=== PATIENT | male | born 1965 | race African-American/Black ===

== ENCOUNTER 2020-05-27 08:46 | Outpatient (CLI) | payer OTHER, SELFPAY ==
--- NOTE | 2020-05-27 08:51 | ECG_ITS ---
Measurements Intervals [place] Rate: 74 P: 43 IA: 150 QRS: 72 QRSD: 89 T: 35 QT: 381 QTc: 424 Interpretive Statements SINUS RHYTHM NONSPECIFIC T-WAVE ABNORMALITY- INFERIOR LEADS BORDERLINE ECG Electronically Signed On 05-27-2020 15:48:06 STRATEGIC ACCOUNT DIRECTOR by Thien Mcwilliams D.O.
== END 2020-05-27 08:47 | disposition home or self-care (01) ==
PROVIDERS: PCP Family Medicine; Visit Provider Family Medicine
DX: R07.9 Chest pain, unspecified (principal)
CPT/HCPCS: 93005

== ENCOUNTER 2020-11-24 15:56 | Outpatient (CLI) | payer OTHER, SELFPAY ==
--- NOTE | ~2020-11-24 | XR_ITS ---
XR hip BI wo pelvis DATE: 11/24/2020 16:39 INDICATION: Right hip pain TECHNIQUE: AP, lateral, crosstable lateral views of each hip COMPARISON: None FINDINGS: The pubic symphysis and sacroiliac joints are intact. No hip fracture or dislocation, avasc ular necrosis or bone destruction is noted on either side. Hip joint spaces are symmetric and relativ ruby preserved. IMPRESSION: No significant abnormality Reviewed, dictated and finalized at location A. IMPRESSION: No significant abnormality
--- NOTE | ~2020-11-24 | XR_ITS ---
XR lumbar spine min 4V DATE: 11/24/2020 16:39 INDICATION: Right hip pain for 2 weeks. No known injury. TECHNIQUE: AP, lateral, coned lateral lumbosacral and bilateral oblique views COMPARISON: 05/21/2004 lumbar spine FINDINGS: There is mild degenerative spurring at L1-2, L2-3 and L3-4. Disc spaces are relatively pres erved. No fracture or bone destruction, spondylolysis or spondylolisthesis. The pedicles are intact. The sac roiliac joints are normal. IMPRESSION: Mild degenerative spurring Reviewed, dictated and finalized at location A. IMPRESSION: Mild degenerative spurring
== END 2020-11-24 15:57 | disposition home or self-care (01) ==
LOC: ANHIMG 16:03
PROVIDERS: PCP Family Medicine; Visit Provider Family Medicine
DX: M25.551 Pain in right hip (principal); M47.816 Spondylosis without myelopathy or radiculopathy, lumbar region
CPT/HCPCS: 72110; 73521

== ENCOUNTER 2023-03-04 15:45 | Observation (INO) | payer OTHER, SELFPAY ==
[2023-03-04] VITALS (12 sets, daily range): BP systolic 99–122; BP diastolic 55–66; PULSE 95–124; RESP 14–20; TEMP 37.6–38.6; O2SAT 93–100; BMI 35.7; BMI 36.8
--- NOTE | ~2023-03-04 | CT_ITS ---
EXAMINATION: CT abdomen pelvis w con DATE: 03/04/2023 16:52 INDICATION: Right lower quadrant pain and nausea TECHNIQUE: Computed tomography (CT) of the abdomen and pelvis was performed with 100 cc Omnipaque 350 intravenous contrast. The dose-length product was 1301.38 mGy-cm. Automated exposure control and ite rative reconstruction technique were employed. COMPARISON: None. FINDINGS: Large hiatal hernia. No significant pleural or pericardial effusion. Mild atherosclerosis w ithout aneurysm. Bilateral fat-containing inguinal hernias. There is a fat-containing umbilical herni a. The liver, spleen, pancreas, right adrenal gland are unremarkable. There is an intermediate density 2 .5 cm left adrenal mass. Gallbladder is contracted. Nonobstructive bowel gas pattern. There is an enh ancing appendix which is not enlarged. There is fluid surrounding the tail of the appendix extending into the paracolic gutter and pelvis. Bladder wall is diffusely thickened with mild perivesical fatty infiltration. No discrete walled off fluid collection to suggest abscess. The liver, spleen, pancrea s, right adrenal gland and kidneys are unremarkable. There are mild external iliac chain lymph nodes with surrounding fluid, likely reactive. IMPRESSION: 1. Enhancing normal caliber appendix with surrounding fluid which extends inferiorly into the paracol ic gutter and pelvis. No discrete walled off fluid collection to suggest abscess. Cannot exclude acut e appendicitis. 2: Mild lymphadenopathy of the right external iliac chain, likely reactive. 3: Large hiatal hernia. 4: Diffuse bladder wall thickening with perivesical fatty infiltration, suspicious for cystitis. Reviewed, dictated and finalized at location A. IMPRESSION: 1. Enhancing normal caliber appendix with surrounding fluid which extends infer iorly into the paracolic gutter and pelvis. No discrete walled off fluid collec tion to suggest abscess. Cannot exclude acute appendicitis. 2: Mild lymphadenopathy of the right external iliac chain, likely reactive. 3: Large hiatal hernia. 4: Diffuse bladder wall thickening with perivesical fatty infiltration, suspici ous for cystitis.
--- NOTE | 2023-03-04 16:09 | ED.ABDPAIN ---
HPI - Abdominal Pain General Chief Complaint: Abdominal Pain <KASSANDRA Gaviria Last Filed: 03/04/23 16:16> Stated Complaint: abd pain <KASSANDRA Gaviria Last Filed: 03/04/23 16:16> Time Seen by Provider: 03/04/23 17:16 <KASSANDRA Gaviria Last Filed: 03/04/23 16:16> Source: patient <KASSANDRA Gaviria Last Filed: 03/04/23 16:16> Mode of arrival: ambulatory <KASSANDRA Gaviria Last Filed: 03/04/23 16:16> Limitations: no limitations <KASSANDRA Gaviria Last Filed: 03/04/23 16:16> History of Present Illness HPI narrative: Patient is a 57 y/o male who presents to the ED with c/o RLQ abdominal pain. Patient reports he began feeling ill a few days ago with subjective fevers, chills, body aches. He developed lower abdominal pain today which seems to be localized to his RLQ. Sent here from PCP office. Tested negative for covid at home, negative for influenza at PCP office. Reports nausea and mild dysuria, denies vomiting, diarrhea, cough/cold sx's, hematuria, back/flank pain. <KASSANDRA Gaviria Last Filed: 03/04/23 16:16> Related Data Home Medications: Home Medications Medication Instructions Recorded Confirmed esomeprazole magnesium 40 mg 40 mg PO DAILY 04/13/19 03/04/23 capsule,delayed release (Nexium) fluticasone propionate 50 2 spray intranasal DAILY 04/13/19 03/04/23 mcg/actuation nasal spray,suspension (Flonase Allergy Relief) multivitamin (Daily Multi-Vitamin 1 tablet PO DAILY 05/20/22 03/04/23 tablet) azithromycin 250 mg tablet 250 mg PO DAILY 03/04/23 03/04/23 loratadine 10 mg tablet (Claritin) 10 mg PO DAILY 03/04/23 03/04/23 <KASSANDRA Gaviria Last Filed: 03/04/23 16:16> Allergies/Adverse Reactions: Allergies Allergy/AdvReac Type Severity Reaction Status Date / Time cefuroxime Allergy Unknown Nausea Verified 03/04/23 23:06 clarithromycin Allergy Unknown itching Verified 03/04/23 23:06 loratadine Allergy Unknown fast heart Verified 03/04/23 23:06 rate/palpitations Penicillins Allergy Unknown Unknown Verified 03/04/23 23:06 pseudoephedrine Allergy Unknown fast heart Verified 03/04/23 23:06 [Claritin-D 12 Hour] rate/palpitations <Elizabeth Daniels PA-C - Last Filed: 03/04/23 16:16> Review of Systems Review of Systems: CONSTITUTIONAL: See HPI. CARDIOVASCULAR: Denies chest pain, palpitations, or edema. RESPIRATORY: Denies cough or dyspnea. GASTROINTESTINAL: See HPI. GENITOURINARY: See HPI. MUSCULOSKELETAL: Denies myalgia. NEUROLOGIC: Denies headache, numbness, or weakness. <Elizabeth Daniels PA-C - Last Filed: 03/04/23 16:16> [facility] Past Medical History Medical History: Medical History (Updated 03/04/23 @ 19:35 by Lasha Florentino PA-C) Normal colonoscopy (~11/16/13) <Elizabeth Daniels PA-C - Last Filed: 03/04/23 16:16> Surgical History Surgical History: Surgical History History of adenoidectomy History of arthroscopy of knee (~07/22/13) History of tonsillectomy <Elizabeth Daniels PA-C - Last Filed: 03/04/23 16:16> Family History Family History: Family History Father Diabetes mellitus Mother Diabetes mellitus Sibling Diabetes mellitus Carcinoma of colon <Elizabeth Daniels PA-C - Last Filed: 03/04/23 16:16> Social History Social History: Social History Smoking status: Never smoker Alcohol intake: former Substance use: never Lack of Transportation: No Lack of Food: Never True Current Housing: I Have Housing Concerned About Future Housing: No Difficulty Paying Gas/Electric Bills: No Difficulty Paying for Meds: No Currently Unemployed: No Education: Master's Degree or Higher Difficulty w/ Child
[2023-03-04 16:20] LABS: Basophils Absolute Auto 0.1 K/mm3 (0.0-0.1); Basophils Percent Auto 0.2 % (0.2-1.2); Hematocrit 44.5 % (42.0-52.0); Hemoglobin 14.8 g/dL (14.0-18.0); Immature Granulocyte Absolute 0.14 K/mm3 (0.00-0.031); Immature Granulocyte Percent A 0.7 % (0-0.5); Lymphocytes Absolute Auto 0.67 K/mm3 (0.9-3.2); Lymphocytes Percent Auto 3.2 % (18.3-44.2); Mean Corpuscular HGB Conc 33.3 g/dl (32-36); Mean Corpuscular Hemoglobin 30.2 pg (26-34); Mean Corpuscular Volume 90.8 fl (80-100); Mean Platelet Volume 10.5 fl (7.4-10.4); Monocytes Absolute Auto 1.9 K/mm3 (0.1-0.6); Neutrophils Absolute Auto 17.9 K/mm3 (1.3-6.7); Neutrophils Percent Auto 86.9 % (45.5-73.1); Platelet Count Result 144 k/mm3 (150-375); Red Cell Distribution Width 13.2 % (11.5-14.5); White Blood Count 20.7 K/mm3 (4.5-10.0)
[2023-03-04 16:37] LABS: Alanine Aminotransferase 20 U/L (6-50); Alkaline Phosphatase 34 U/L (38-126); Anion Gap 10 mmol/L (8-16); Aspartate Amino Transferase 25 U/L (17-59); Bilirubin,Total 0.9 mg/dL (0.2-1.3); Blood Urea Nitrogen 19 mg/dL (9-20); Calcium 9.1 mg/dL (8.4-10.2); Carbon Dioxide 26 mmol/L (22-30); Chloride 97 mmol/L (98-107); Estimated CRCL calculation 51 ml/min; Estimated Glomerular Filt Rate 47; Glucose 187 mg/dL (65-110); Lipase 55 U/L (23-300); Potassium 3.6 mmol/L (3.4-5.0); Sodium 133 mmol/L (137-145)
[2023-03-04] MEDS: ACETAMINOPHEN 500 MG TABLET 1000 MG PO (17:32)
[2023-03-04] MEDS: SODIUM CHLORIDE 0.9% IV 1,000 ML 999 ML IV CONT ×2 (17:33→19:44)
[2023-03-04] MEDS: ONDANSETRON INJ 4 MG/2 ML VIAL IV PUSH ×2 (18:10→23:44)
[2023-03-04] MEDS: MORPHINE SULFATE (*CRX) 4 MG/ML INJ IV PUSH (18:10)
[2023-03-04 18:43] LABS: Appearance Urine Clear (Clear); Bacteria Urine None Seen /hpf; Bilirubin Urine Negative (Negative); Blood Urine Trace (Negative); Color Urine Yellow (Yellow); Glucose Urine UA Negative (Negative); Ketones Urine Negative (Negative); Leukocyte Esterase Ur Negative LEU/UL (Negative); Need Manual Microscopic Reviewed; Nitrate Urine Negative (Negative); Non Pathogenic Casts 0-2; Protein Urine 1+ mg/dL (Negative); RBC Urine 0-2 /hpf (0-2); Squamous Epithelial Cell Urine None seen /hpf (Few); Urobilinogen Urine 0.2 mg/dL (<2.0); WBC Urine 0-5 /hpf; pH Urine 5.5 (5.0-9.0)
[2023-03-04 18:47] LABS: Add Urine Microscopic? YES; Specific Grav Ur 1.084 (1.001-1.035)
--- NOTE | 2023-03-04 19:31 | PC.NURSE ---
Assumed care of pt. Report from JOSE MIGUEL Ureña. Pt resting quietly per cart. Awaiting dispo.
[2023-03-04] MEDS: metroNIDAZOLE 500 MG/ISO 100ML 500 MG/100 ML BAG 100 MG IVPB (20:54)
[2023-03-04] MEDS: levoFLOXacin 750 MG/D5W 150 ML 750 MG/150 ML BAG 100 MG IVPB (22:04)
--- NOTE | 2023-03-04 22:46 | ADMGEN ---
This patient, Jesus Hanson, was admitted to [facility] Surg Room 327-01. Patient/family oriented to hospital policies and general routines including ID bracelet, bed and alarms, visiting hours, pain management, procedures, bathroom and other care routines, personal items, smoking policy, room service/diet, and visiting hours. Information on how to activate the Rapid Response Team has been discussed. Patient/Family are encouraged to report perceived risks to care and to ask questions if they do not understand what they are told or what they should do.
[2023-03-04] MEDS: SODIUM CHLORIDE 0.9% IV 1,000 ML 125 ML IV CONT (23:44)
[2023-03-05] VITALS (15 sets, daily range): BP systolic 109–148; BP diastolic 60–84; PULSE 80–116; RESP 14–20; TEMP 36.2–38.6; O2SAT 94–99
[2023-03-05] MEDS: ACETAMINOPHEN 500 MG TABLET 1000 MG PO (00:48)
[2023-03-05] MEDS: BUPIVACAINE/EPINEPHRINE 0.5% 50 ML VIAL 30 ML INFILTRATE (01:12)
[2023-03-05] MEDS: metroNIDAZOLE 500 MG/ISO 100ML 500 MG/100 ML BAG 100 MG IVPB ×4 (02:05→20:19)
--- NOTE | 2023-03-05 06:00 | ECG_ITS ---
Measurements Intervals [place] Rate: 105 P: 43 AK: 146 QRS: 63 QRSD: 96 T: 11 QT: 318 QTc: 420 Interpretive Statements SINUS TACHYCARDIA MINIMAL Q WAVES- INFERIOR LEADS NONSPECIFIC T-WAVE ABNORMALITY- INFERIOR LEADS BORDERLINE ECG COMPARED TO ECG 03/04/2023 19:47:06 NO SIGNIFICANT CHANGES Electronically Signed On 03-05-2023 9:27:37 CDT by Thien Mcwilliams D.O.
[2023-03-05] MEDS: SODIUM CHLORIDE 0.9% IV 1,000 ML 125 ML IV CONT (09:08)
--- NOTE | 2023-03-05 11:56 | PM.IMHP ---
H&P: HPI History of Present Illness Date/Time: 03/05/23 11:56 Chief Complaint: Abdominal pain Narrative: This is a 57-year-old man with a history of type 2 diabetes mellitus, hypertension, asthma, and hyperlipidemia, who was directed to the ER by his primary care physician yesterday for evaluation of abdominal pain. He reportedly developed chills and nausea 3 days ago. He has also been dealing with a headache for almost a week and thought he was having sinus issues. He decided to see his PCP 2 days ago for his headache. At that time, he was not having any abdominal pain. He continued to have nausea, but no vomiting. He was able to tolerate a diet and bowels were moving normally. He was treated for his headache and went home. Later that night, and into the next morning around 2:00 a.m., he developed periumbilical abdominal pain. He continued to have nausea. His pain progressively worsened and began to localize to the right lower quadrant. He reports feeling pain all over at times, but was mostly tender in the right lower quadrant. Yesterday morning, he reportedly had a fever of 101.8? F. He went back to his PCP and was directed to the ER for evaluation. In the ER, he had a fever as high as 101.5? F and was tachycardic with a heart rate in the 120s. Labs were significant for white blood cell count of 20,700, creatinine 1.8, and normal BUN. Urinalysis negative for urinary tract infection. CT scan of the abdomen and pelvis showed enhancing normal caliber appendix with surrounding fluid which extends inferiorly into the pericolic gutter and pelvis, no discrete walled off fluid for collection to suggest abscess, cannot exclude acute appendicitis. Mild lymphadenopathy of the right external iliac chain likely reactive, large hiatal hernia, and diffuse bladder wall thickening with perivesical fat infiltration suspicious for cystitis. The patient was admitted to our service for surgical evaluation. He has a penicillin allergy and was started on IV Levaquin and metronidazole. He is now seen on the medical floor. Review of Systems Review of Systems: All systems reviewed & are unremarkable except as noted in HPI and below PMFSH Past Medical History Medical History Hypertension Mild intermittent asthma Normal colonoscopy (~11/16/13) Pure hypercholesterolemia, unspecified Type 2 diabetes mellitus with chronic kidney disease Surgical History Surgical History History of adenoidectomy History of arthroscopy of knee (~07/22/13) History of tonsillectomy Family History Family History Father Diabetes mellitus Mother Diabetes mellitus Sibling Diabetes mellitus Carcinoma of colon Social History Social History Smoking status: Never smoker Alcohol intake: former Substance use: never Lack of Transportation: No Lack of Food: Never True Current Housing: I Have Housing Concerned About Future Housing: No Difficulty Paying Gas/Electric Bills: No Difficulty Paying for Meds: No Currently Unemployed: No Education: Master's Degree or Higher Difficulty w/ Childcare or Family Care: No Spiritual care concerns: No Meds Home Medications and Allergies Home Medications Medication Instructions Recorded Confirmed Type esomeprazole magnesium 40 mg 40 mg PO DAILY 04/13/19 03/04/23 History capsule,delayed release (Nexium) fluticasone propionate 50 2 spray intranasal DAILY 04/13/19 03/04/23 History mcg/actuation nasal spray,suspension (Flonase Allergy Relief) metformin 500 mg tablet,extended 500 mg PO DAILY #90 tabs 05/20/22 03/04/23 Rx release 24 hr multivitamin (Daily Multi-Vitamin 1 tablet PO DAILY 05/20/22 03/04/23 History tablet) lisinopril 2.5 mg tablet See Rx Instructions
[2023-03-05 12:32] LABS: Glucose Point of Care 126 mg/dl (65-105)
--- NOTE | 2023-03-05 13:37 | WPDANESEPPF ---
Anes - Initial Pre Proc Eval Procedure: Operation Date: 03/05/23 14:00 Proposed Procedures p Laparoscopic Appendectomy - August Sanders DO Date/Time: 03/05/23 13:37 Surgeon: August Sanders DO Pre Op Diagnosis: Acute Appendicitis Patient Data Age: 57 Gender: M Height: 1.78 m Weight: 116.6 kg Last Vital Signs Temp 36.9 C 03/05/23 05:46 Pulse 95 03/05/23 05:46 Resp 14 03/05/23 05:46 BP 109/60 03/05/23 05:46 Pulse Ox 99 03/05/23 05:46 O2 Del Method Room Air 03/04/23 23:00 Allergies Allergy/AdvReac Type Severity Reaction Status Date / Time cefuroxime Allergy Unknown Nausea Verified 03/04/23 23:06 clarithromycin Allergy Unknown itching Verified 03/04/23 23:06 loratadine Allergy Unknown fast heart Verified 03/04/23 23:06 rate/palpitations Penicillins Allergy Unknown Unknown Verified 03/04/23 23:06 pseudoephedrine Allergy Unknown fast heart Verified 03/04/23 23:06 [Claritin-D 12 Hour] rate/palpitations Home Medications Medication Instructions Recorded Confirmed Type esomeprazole magnesium 40 mg 40 mg PO DAILY 04/13/19 03/04/23 History capsule,delayed release (Nexium) fluticasone propionate 50 2 spray intranasal DAILY 04/13/19 03/04/23 History mcg/actuation nasal spray,suspension (Flonase Allergy Relief) metformin 500 mg tablet,extended 500 mg PO DAILY #90 tabs 05/20/22 03/04/23 Rx release 24 hr multivitamin (Daily Multi-Vitamin 1 tablet PO DAILY 05/20/22 03/04/23 History tablet) lisinopril 2.5 mg tablet See Rx Instructions .Route 09/20/22 03/04/23 Rx .COMPLEX #90 tabs pravastatin 10 mg tablet 10 mg PO QHS #30 tabs 11/28/22 03/04/23 Rx hydrochlorothiazide 12.5 mg tablet See Rx Instructions .Route 12/11/22 03/04/23 Rx .COMPLEX #30 tabs albuterol sulfate 90 mcg/actuation 2 puff inhalation Q4-6H PRN 02/24/23 03/04/23 Rx aerosol inhaler (ProAir HFA) shortness of breath or wheezing #8.5 grams azithromycin 250 mg tablet 250 mg PO DAILY 03/04/23 03/04/23 History loratadine 10 mg tablet (Claritin) 10 mg PO DAILY 03/04/23 03/04/23 History Laboratory Tests 03/04/23 03/04/23 03/05/23 16:14 18:14 12:29 WBC 20.7 H K/mm3 (4.5-10.0) RBC 4.90 M/mm3 (4.6-6.20) Hgb 14.8 g/dL (14.0-18.0) Hct 44.5 % (42.0-52.0) MCV 90.8 fl (80-100) MCH 30.2 pg (26-34) MCHC 33.3 g/dl (32-36) RDW 13.2 % (11.5-14.5) Plt Count 144 L k/mm3 (150-375) MPV 10.5 H fl (7.4-10.4) Immature Gran % (Auto) 0.7 H % (0-0.5) Neut % (Auto) 86.9 H % (45.5-73.1) Lymph % (Auto) 3.2 L % (18.3-44.2) [place] % (Auto) 9.0 H % (2.6-8.5) Eos % (Auto) 0.0 % (0-4.4) Baso % (Auto) 0.2 % (0.2-1.2) Lymph # (Auto) 0.67 L K/mm3 (0.9-3.2) [place] # (Auto) 1.9 H K/mm3 (0.1-0.6) Eos # (Auto) 0.0 K/mm3 (0-0.3) Baso # (Auto) 0.1 K/mm3 (0.0-0.1) Abs Immat Gran (auto) 0.14 H K/mm3 (0.00-0.031) Absolute Neuts (auto) 17.9 H K/mm3 (1.3-6.7) Absolute Nucleated RBC 0.0 K/mm3 (0.0-0.012) Nucleated RBC % 0.0 % (0.0-0.2) Sodium 133 L mmol/L (137-145) Potassium 3.6 mmol/L (3.4-5.0) Chloride 97 L mmol/L (98-107) Carbon Dioxide 26 mmol/L (22-30) Anion Gap 10 mmol/L (8-16) BUN 19 mg/dL (9-20) Creatinine 1.80 H mg/dL (0.7-1.3) Estim Creat Clear Calc 51 ml/min Estimated GFR 47 L (59 - ) Glucose 187 H mg/dL (65-110) POC Capillary Glucose 126 H mg/dl (65-105) Calcium 9.1 mg/dL (8.4-10.2) Total Bilirubin 0.9 mg/dL (0.2-1.3) AST 25 U/L (17-59) ALT 20 U/L (6-50) Alkaline Phosphatase 34 L U/L (38-126) Total Protein 7.0 g/dL (6.3-8.2) Albumin
[2023-03-05 13:47] LABS: Glucose Point of Care 133 mg/dl (65-105)
[2023-03-05] MEDS: LACTATED RINGERS 1,000 ML 30 ML IV CONT (13:49)
--- NOTE | 2023-03-05 13:50 | WPDHPUPDATE1 ---
History and Physical Update Update Date/Time: 03/05/23 13:50 History and Physical has been reviewed, including an updated exam of the patient. There are NO changes in the patient's condition. Risks, benefits, and alternatives have been discussed and questions answered. Patient agrees to proceed with procedure.
--- NOTE | 2023-03-05 15:03 | W.PM.PROC2 ---
Procedure Note - Detailed Date of Procedure 03/05/23 Pre-op Diagnosis Acute Appendicitis Post-op Diagnosis Same Procedure Performed Laparoscopic appendectomy Surgeon August Sanders, DO Anesthesia General and Local (0.5% bupivicaine with epinephrine) Indications This is a 57-year-old man who presented with intermittent abdominal pain for about the past week that became acutely worse over the past day or so. He experienced fevers yesterday and was having worsening abdominal pain. He presented to the emergency department and was noted to have an elevated white blood count and CT showed inflammatory stranding around the appendix concerning for appendicitis. He was admitted to the hospital placed on broad-spectrum IV antibiotics. The patient continued to have right lower quadrant pain. Discussions were made with the patient about treatment options and decision was made to proceed with laparoscopic appendectomy, possible open. Findings Laparoscopic appendectomy was performed. Upon entering the abdomen laparoscopically, there did appear to be a few chronic abdominal adhesions including omentum up to the lower abdominal wall and right lower quadrant. There were also some omental adhesions around the appendix itself. The appendix had some chronic inflammatory changes, but did not appear to be too acutely inflamed. The base of the appendix appeared healthy and viable. The appendix was removed and sent to the lab for pathology. I then carefully inspected the remainder of the colon and small bowel. No other acute abnormalities were noted. Description of Procedure Procedure as well as risks, benefits, and alternatives were explained to the patient. The patient agreed to proceed. Written consent was obtained and placed in chart prior to procedure. The patient was brought back to surgical suite. He was placed supine on operating table. Time-out was done to confirm the patient and procedure. The patient was then intubated by the Anesthesia Department. His abdomen was prepped and draped in sterile fashion using chlorhexidine prep. A 5 mm incision was made just to the left of the patient's umbilicus and a 5 mm Optiview trocar was advanced through the abdominal layers under direct visualization. Once inside the peritoneal cavity, carbon dioxide insufflation was used to create a pneumoperitoneum. The camera was inserted and the abdomen was inspected. No immediate abnormalities were identified. The patient was then placed in slight Trendelenburg position and rotated to the left. A 5 mm incision was made in the suprapubic region in midline and a 5 mm trocar was inserted under direct visualization. A 12 mm incision was made in the left lower quadrant and a 12 mm trocar was inserted under direct visualization. The right lower quadrant was carefully inspected. The cecum was identified and then this was traced back to the appendix. The appendix was identified and grasped at the mesoappendix and lifted anteriorly. Careful blunt dissection was carried out at the base of the appendix through the mesoappendix using a [place] grasper. An Endo-TRACY 45 mm blue load stapler was then advanced across the base of the appendix and clamped and fired. A white reload was then clamped across the mesoappendix and fired. This freed up our appendix completely. It was then placed in an EndoCatch bag and removed through the left lower quadrant port. The staple lines were then inspected. Hemostasis appeared adequate and the staple lines appeared secure. The area was then irrigated with sterile saline. The pelvis was then carefully inspected and irrigated with sterile saline as well and the remainder of the abdomen was carefully inspected. The patient was then flattened out in bed. One final inspection was made around the abdominal cavity and no other abnormalities were seen. The left lower quadrant port was removed and a Usama-Andrés cone was used to approximate the fascia with a
[2023-03-05 15:28] LABS: Glucose Point of Care 131 mg/dl (65-105)
--- NOTE | 2023-03-05 18:39 | PC.NURSE ---
patient returned to room at 1650 from surgery
[2023-03-05] MEDS: HYDROcodone/acetaminophen (*CRX) 7.5-325 MG TABLET 1 TAB PO (20:19)
[2023-03-05] MEDS: levoFLOXacin 750 MG/D5W 150 ML 750 MG/150 ML BAG 100 MG IVPB (22:33)
[2023-03-06] MEDS: metroNIDAZOLE 500 MG/ISO 100ML 500 MG/100 ML BAG 100 MG IVPB ×2 (03:04→08:00)
[2023-03-06] MEDS: HYDROcodone/acetaminophen (*CRX) 7.5-325 MG TABLET 1 TAB PO (03:39)
[2023-03-06 04:17] VITALS: BP 112/73; PULSE 87; RESP 16; TEMP 36.2; O2SAT 96
[2023-03-06 06:57] LABS: Hematocrit 42.1 % (42.0-52.0); Hemoglobin 13.6 g/dL (14.0-18.0); Mean Corpuscular HGB Conc 32.3 g/dl (32-36); Mean Corpuscular Hemoglobin 29.9 pg (26-34); Mean Corpuscular Volume 92.5 fl (80-100); Platelet Count Result 142 k/mm3 (150-375); Red Blood Count 4.55 M/mm3 (4.6-6.20); Red Cell Distribution Width 13.2 % (11.5-14.5); White Blood Count 18.7 K/mm3 (4.5-10.0)
[2023-03-06 07:01] LABS: Anion Gap 7 mmol/L (8-16); Blood Urea Nitrogen 14 mg/dL (9-20); Calcium 8.5 mg/dL (8.4-10.2); Carbon Dioxide 27 mmol/L (22-30); Chloride 103 mmol/L (98-107); Estimated CRCL calculation 65 ml/min; Estimated Glomerular Filt Rate > 60; Glucose 105 mg/dL (65-110); Potassium 3.4 mmol/L (3.4-5.0); Sodium 137 mmol/L (137-145)
[2023-03-06 08:00] VITALS: O2SAT 96
[2023-03-06] MEDS: ENOXAPARIN 40 MG/0.4 ML SYRINGE SUB-Q (08:00)
[2023-03-06 10:01] VITALS: BP 127/80; PULSE 90; RESP 18; TEMP 36.6; O2SAT 97
--- NOTE | 2023-03-06 10:23 | PM.DS ---
DS: Admitting Diagnosis Discharge Date 03/06/2023 Admitting Diagnosis Acute appendicitis, acute kidney injury DS: Discharge Diagnosis Discharge Diagnosis (1) Acute appendicitis: Qualifiers: Acute appendicitis type: with localized peritonitis Appendicitis gangrene presence: without gangrene Appendicitis perforation presence: without perforation Appendicitis abscess presence: without abscess Qualified Code(s): K35.30 - Acute appendicitis with localized peritonitis, without perforation or gangrene Code(s): K35.80 - Unspecified acute appendicitis Status: Acute (2) Acute kidney injury superimposed on chronic kidney disease: Code(s): N17.9 - Acute kidney failure, unspecified; N18.9 - Chronic kidney disease, unspecified Status: Acute (3) Type 2 diabetes mellitus with chronic kidney disease: Code(s): E11.22 - Type 2 diabetes mellitus with diabetic chronic kidney disease Status: Chronic DS: Summary Hospital Course Reason for hospitalization: Acute appendicitis Hospital Course: This is a 57-year-old man who presented to the emergency department 03/04/2023 with right lower quadrant pain. He had been having some intermittent pains over the past week or so, but over the past 2 days his pain had become constant and more severe. He was also experiencing nausea and vomiting. Workup in the emergency department showed an elevated white blood count. He was also febrile. CT showed fat stranding and fluid along the right lower quadrant and right pericolic gutter near the appendix. The appendix was not dilated but it was enhancing. His symptoms appeared consistent with acute cholecystitis therefore he was admitted to the hospital and started on broad-spectrum IV antibiotics. Then underwent laparoscopic appendectomy on 03/05/2023. There was some chronic scarring around the appendix and the appendix appeared mildly indurated but there was no evidence of perforation or abscess. The appendix was removed and sent to the lab for pathology. Postoperatively he did well. He was able to advance his diet. He was passing flatus. He remained afebrile after surgery and he was hemodynamically stable. His white blood count came down slightly on postop day 1 but was still elevated at 18,000. Blood cultures have been obtained in the emergency department and so far were negative. Discussions were made with the patient about continued observation versus discharge home. Patient felt comfortable going home. He was discharged on 03/06/2023 a 5 day course of Levaquin and Flagyl. Status at Discharge Functional status at discharge: independent ambulation Overall status at discharge: patient is progressing back to baseline Time Spent with Patient Time attestation: Total time spent providing and/or coordinating discharge services: Time spent: Less than 30 minutes Exam Const: General: comfortable, no acute distress and alert Orientation/consciousness: patient oriented x3 Resp: Effort & Inspection: normal respiratory effort Auscultation: clear to auscultation bilaterally Cardio: Rate: regular rate Rhythm: regular rhythm Heart sounds: S1 normal heart sound present and S2 normal heart sound present GI: Inspection: non-distended and incision (Intact with glue) GI Palp: Yes Soft to palpation and Yes Tenderness to palpation present (GI) (Incisional) Auscultation: normal bowel sounds DS: Data Data Completed and Pending Pending studies at discharge: Pending at discharge 03/05/23 14:44 Surgical [PTH] Routine Labs on day of discharge: Labs from last 24 hours 03/06/23 03/05/23 03/05/23 06:23 15:25 13:45 WBC 18.7 H RBC 4.55 L Hgb 13.6 L Hct 42.1 MCV 92.5 MCH 29.9 MCHC 32.3 RDW 13.2 Plt Count 142 L MPV 11.0 H Sodium 137 Potassium 3.4 Chloride 103 Carbon Dioxide 27 Anion Gap 7 L BUN 14 D Creatinine 1.40 H Estim Creat Clear Calc 65 Estimate
== END 2023-03-06 12:55 | disposition home or self-care (01) ==
LOC: ANHED 19:35 → ANH3MEDSUR 22:09
PROVIDERS: Emergency Medicine; Admitting Provider Surgery; Emergency Provider Physician Assistant; PCP Family Medicine; Visit Provider Surgery
PROC: 0DTJ4ZZ Resection of Appendix, Percutaneous Endoscopic Approach (ICD-10-PCS; CPT 44970; principal; 2023-03-05 14:00)
DX: K36 Other appendicitis (principal); R00.1 Bradycardia, unspecified; D72.829 Elevated white blood cell count, unspecified; R50.9 Fever, unspecified; R56.9 Unspecified convulsions; R59.1 Generalized enlarged lymph nodes; R11.0 Nausea; J45.909 Unspecified asthma, uncomplicated; E78.00 Pure hypercholesterolemia, unspecified; E11.9 Type 2 diabetes mellitus without complications; I10 Essential (primary) hypertension; E78.5 Hyperlipidemia, unspecified; K44.9 Diaphragmatic hernia without obstruction or gangrene; R94.4 Abnormal results of kidney function studies; E66.9 Obesity, unspecified; Z79.51 Long term (current) use of inhaled steroids; Z68.36 Body mass index [BMI] 36.0-36.9, adult; Z79.84 Long term (current) use of oral hypoglycemic drugs; Z79.899 Other long term (current) drug therapy
CPT/HCPCS: 44970; 36415; 74177; 80048; 80053; 81001; 82948; 83690; 85025; 85027; 87040; 88304; 93005; 96361; 96365; 96375; 96376; 99285; A9270; G0378; J0330; J1650; J1836; J1956; J2250; J2270; J2405; J2704; J3010; J7030; J7120; Q9967

== ENCOUNTER → 2023-03-14 11:20 | Outpatient (CLI) | payer OTHER, SELFPAY ==
--- NOTE | ~2023-03-14 | MR_ITS ---
MRI of the brain Clinical History: Headache Technique: Axial and sagittal T1-weighted images were acquired. These were followed by axial T2-weigh darnell, diffusion weighted, gradient, and FLAIR images. Findings: There is no abnormal signal in the brain parenchyma. No acute infarct, intracranial hemorrh age, or mass lesion identified. Ventricles and subarachnoid spaces are unremarkable. Orbits are unremarkable. Paranasal sinuses and m astoid air cells are clear. Major intracranial flow voids are intact. Sagittal midline structures are intact. IMPRESSION: Unremarkable exam. Reviewed, dictated and finalized at location M. BLOCKER IMPRESSION: Unremarkable exam.
== END ==
PROVIDERS: PCP Family Medicine; Visit Provider Nurse Practitioner Family
DX: R51.9 Headache, unspecified (principal)
CPT/HCPCS: 70551

== ENCOUNTER 2023-04-06 03:46 | Emergency (ER) | payer OTHER, SELFPAY ==
[2023-04-06] VITALS (15 sets, daily range): BP systolic 148–165; BP diastolic 84–111; PULSE 99–109; RESP 18–26; TEMP 36.4; O2SAT 90–97
--- NOTE | ~2023-04-06 | XR_ITS ---
EXAMINATION: XR chest 2V DATE: 04/06/2023 05:58 INDICATION: Cough and sinus congestion TECHNIQUE: PA and lateral views of the chest were obtained. COMPARISON: Chest radiograph dated 05/07/[address] dated 06/06/2004 FINDINGS: Mild opacities at the bilateral lung bases and favor atelectasis over pneumonia. Large hiatal hernia posterior to the normal sized heart. No pulmonary edema, pleural effusion or pneumothorax. Bones are unremarkable. IMPRESSION: 1. Mild bibasilar opacities and favor atelectasis over pneumonia. 2. Large hiatal hernia. Reviewed, dictated and finalized at location A. T BAND SEPARATOR
[2023-04-06 04:57] LABS: Influenza A QL RT-PCR Negative (Negative); Influenza B QL RT-PCR Negative (Negative); RSV RNA, RT-PCR Negative (Negative); SARS-CoV-2 RNA PCR Negative (Negative)
[2023-04-06 05:43] LABS: Strep Group A RT-PCR NOT DETECTED (Negative)
--- NOTE | 2023-04-06 05:43 | ED.GENADULT ---
HPI - General Adult General Chief complaint: Upper Respiratory Infection Stated complaint: sore throat Time Seen by Provider: 04/06/23 04:59 History of Present Illness HPI narrative: patient is a 57-year-old gentleman who presents to emergency department with chief complaint of upper respiratory infection patient reports that since Friday he has had a sore throat has had a dry cough and has had a runny nose. The patient reports that he takes metformin for diabetes reports that he has had no sick contacts does report that he has had some clear nasal discharge. Related Data Home Medications Medication Instructions Recorded Confirmed esomeprazole magnesium 40 mg 40 mg PO DAILY 04/13/19 03/24/23 capsule,delayed release (Nexium) fluticasone propionate 50 2 spray intranasal DAILY 04/13/19 03/24/23 mcg/actuation nasal spray,suspension (Flonase Allergy Relief) multivitamin (Daily Multi-Vitamin 1 tablet PO DAILY 05/20/22 03/24/23 tablet) loratadine 10 mg tablet (Claritin) 10 mg PO DAILY 03/04/23 03/24/23 Allergies Allergy/AdvReac Type Severity Reaction Status Date / Time cefuroxime Allergy Unknown Nausea Verified 04/06/23 05:07 clarithromycin Allergy Unknown itching Verified 04/06/23 05:07 loratadine Allergy Unknown fast heart Verified 04/06/23 05:07 rate/palpitations Penicillins Allergy Unknown Unknown Verified 04/06/23 05:07 pseudoephedrine Allergy Unknown fast heart Verified 04/06/23 05:07 [Claritin-D 12 Hour] rate/palpitations Review of Systems Review of Systems: A 10 system review of systems was completed on the patient and is negative except for what is stated in the HPI. Nursing and ancillary documentation was reviewed. [facility] Past Medical History Medical History Hypertension Mild intermittent asthma Normal colonoscopy (~11/16/13) Pure hypercholesterolemia, unspecified Type 2 diabetes mellitus with chronic kidney disease Surgical History Surgical History History of adenoidectomy History of arthroscopy of knee (~07/22/13) History of tonsillectomy Hx of appendectomy Family History Family History Father Diabetes mellitus Mother Diabetes mellitus Sibling Diabetes mellitus Carcinoma of colon Social History Social History Smoking status: Never smoker Alcohol intake: former Substance use: never Lack of Transportation: No Lack of Food: Never True Current Housing: I Have Housing Concerned About Future Housing: No Difficulty Paying Gas/Electric Bills: No Difficulty Paying for Meds: No Currently Unemployed: No Education: Master's Degree or Higher Difficulty w/ Childcare or Family Care: No Spiritual care concerns: No Exam Narrative: GENERAL: Well-appearing, well-nourished, and in no acute distress. HEAD: Normocephalic, atraumatic. EYES: PERRLA and EOMI. ENT: Nares clear, no rhinorrhea or epistaxis. Mucous membranes moist. NECK: Supple. CHEST: Clear to auscultation. No respiratory distress. HEART: Regular rate and rhythm. No murmur heard. Normal peripheral pulses. ABDOMEN: Soft, nontender, nondistended, normal active bowel sounds. EXTREMITIES: Normal range of motion. No edema. SKIN: Warm, dry, no rash. NEURO: No focal deficits. Alert and oriented x3. PSYCH: Normal mood and affect. Course Vital Signs Vital signs: Vital Signs Temperature 36.4 C L 04/06/23 03:50 Pulse Rate 109 H 04/06/23 03:50 Respiratory Rate 20 04/06/23 03:50 Blood Pressure 151/84 H 04/06/23 03:50 Pulse Oximetry 97 04/06/23 03:50 Oxygen Delivery Room Air 04/06/23 03:50 Temperature 36.4 C L 04/06/23 03:50 Pulse Rate 100 04/06/23 05:30 Respiratory Rate 26 H 04/06/23 05:30 Blood Pressure 148
--- NOTE | 2023-04-06 06:43 | PC.NURSE ---
Edp Dr. Medina okayed discharge vitals.
== END 2023-04-06 06:46 | disposition home or self-care (01) ==
PROVIDERS: Emergency Provider Emergency Medicine; PCP Family Medicine
DX: J06.9 Acute upper respiratory infection, unspecified (principal); Z20.822 Contact with and (suspected) exposure to COVID-19; E11.22 Type 2 diabetes mellitus with diabetic chronic kidney disease; I12.9 Hypertensive chronic kidney disease with stage 1 through stage 4 chronic kidney disease, or unspecified chronic kidney disease; N18.9 Chronic kidney disease, unspecified; J45.20 Mild intermittent asthma, uncomplicated; E78.00 Pure hypercholesterolemia, unspecified; Z79.84 Long term (current) use of oral hypoglycemic drugs
CPT/HCPCS: 71046; 87637; 87651; 99283

== ENCOUNTER → 2023-05-06 10:41 | Outpatient (CLI) | payer OTHER, SELFPAY ==
--- NOTE | ~2023-05-06 | US_ITS ---
Renal-Bladder ultrasound Clinical History: Right kidney disease Technique: Real-time sonographic imaging of the kidneys and urinary bladder was performed. Findings: The right kidney measures 11.7 cm in length and the left kidney measures 12.0 cm. There is no hydronephrosis or renal calculus identified. Renal cortical echogenicity is within normal limits. No renal mass lesion is identified. The urinary bladder is partially distended at the time of this exam. No intraluminal echoes are ident ified. No abnormal wall thickening is seen. Impression: Unremarkable ultrasound of the kidneys and urinary bladder. Reviewed, dictated and finalized at location M. START TEACHER Impression: Unremarkable ultrasound of the kidneys and urinary bladder.
== END ==
PROVIDERS: PCP Internal Medicine Nephrology; Visit Provider Internal Medicine Nephrology
DX: I12.9 Hypertensive chronic kidney disease with stage 1 through stage 4 chronic kidney disease, or unspecified chronic kidney disease (principal); N18.31 Chronic kidney disease, stage 3a; E11.22 Type 2 diabetes mellitus with diabetic chronic kidney disease
CPT/HCPCS: 76775

== ENCOUNTER 2023-07-11 14:01 | Outpatient (CLI) | payer OTHER, SELFPAY ==
--- NOTE | ~2023-07-11 | XR_ITS ---
EXAMINATION: XR sacrum coccyx min 2V DATE: 07/11/2023 14:34 INDICATION: Right hip and buttock pain. TECHNIQUE: 3 views of the sacrum and coccyx were obtained. COMPARISON: None. FINDINGS: Bone alignment is normal. No fracture. The sacroiliac joints are normal. There is mild lumb ar spondylosis. IMPRESSION: 1. Mild lumbar spondylosis. Reviewed, dictated and finalized at location E. RWORKER IMPRESSION: 1. Mild lumbar spondylosis.
--- NOTE | ~2023-07-11 | XR_ITS ---
EXAMINATION: XR pelvis 1-2V DATE: 07/11/2023 14:34 INDICATION: Right hip and buttock pain. TECHNIQUE: An anteroposterior view of the pelvis was obtained. COMPARISON: None. FINDINGS: Bone alignment is normal. No fracture. There is mild osteoarthritis of the hips. There is m ild lumbar spondylosis. IMPRESSION: 1. Mild osteoarthritis of the hips. Reviewed, dictated and finalized at location E. EATION DIRECTOR
== END 2023-07-11 14:02 | disposition home or self-care (01) ==
PROVIDERS: PCP Family Medicine; Visit Provider Family Medicine
DX: M16.0 Bilateral primary osteoarthritis of hip (principal); M43.06 Spondylolysis, lumbar region; M53.3 Sacrococcygeal disorders, not elsewhere classified
CPT/HCPCS: 72170; 72220

== ENCOUNTER 2024-12-03 08:33 | Outpatient (CLI) | payer OTHER, SELFPAY ==
--- NOTE | ~2024-12-03 | XR_ITS ---
Right Shoulder Technique: AP and scapular Y views were obtained. Clinical History: Pain Findings: No fracture or dislocation is seen. Osseous alignment is anatomic. The glenohumeral and acr omioclavicular joint spaces are preserved. Soft tissues are unremarkable. Impression: Unremarkable right shoulder radiographs. Reviewed, dictated and finalized at [facility]. Impression: Unremarkable right shoulder radiographs.
== END 2024-12-03 08:34 | disposition home or self-care (01) ==
PROVIDERS: PCP Family Medicine; Visit Provider Nurse Practitioner Family
DX: M25.511 Pain in right shoulder (principal)
CPT/HCPCS: 73030

== ENCOUNTER 2025-02-02 00:13 | Day surgery (SDC) | payer OTHER, SELFPAY ==
[2025-01-20 09:14] VITALS: BMI 29.2
--- OUTSIDE RECORDS SUMMARY | 2025-02-02 00:16 | XMS_ITS | Clinical Summary ---
Author Organization [facility] Address [address] [place] [address] Care Team Providers Care Brick Handler Name Role Phone Merrill Kilpatrick MD Primary Care Provider [phone]- [phone] Allergies Active Allergy Reactions Criticality Noted Date Comments Penicillins Fatigue 08/13/2023 Medications albuterol sulfate HFA 108 (90 Base) MCG/ACT inhaler Inhale 2 puffs into the lungs every 4 (four) hours as needed for Shortness of breath or Wheezing. Active Flaxseed Oil (LINSEED OIL) Oil 1 tablet by Other route daily. Active fluticasone propionate (FLONASE) 50 MCG/ACT nasal spray 1 spray by Nasal route daily. Active loratadine (CLARITIN) 10 MG tablet Take 1 tablet (10 mg total) by mouth daily. Active multivitamin with minerals liquid Take 15 mLs by mouth daily. Active metFORMIN (GLUCOPHAGE) 500 MG tablet Take 1 tablet (500 mg total) by mouth 2 (two) times daily with meals. Active hydroCHLOROthia zide (MICROZIDE) 12.5 MG tablet Take 1 tablet (12.5 mg total) by mouth every morning. Active lisinopril (PRINIVIL) 2.5 MG tablet Take 1 tablet (2.5 mg total) by mouth daily. Active pravastatin (PRAVACHOL) 10 MG tablet Take 1 tablet (10 mg total) by mouth nightly at bedtime. Three days a week Active Calcium Carb-Cholecalci ferol (CALCIUM 500 +D OR) Take 1 tablet by mouth daily. Active Active Problems Problem Noted Date Diagnosed Date Elevated PSA 08/20/2023 Social History Tobacco Use Types Packs/Day Years Used Date Smoking Tobacco: Never Smokeless Tobacco: Never Tobacco Cessation:Counseling Given: Not Answered Alcohol Use Standard Drinks/Week Comments Not Currently 0 (1 standard drink = 0.6 oz pur e alcohol) Sex and Gender Information Value Date Recorded Sex Assigned at Not on file Legal Sex Male 8:47 AM CDT Gender Identity Not on file Sexual Orientation Not on file Last Filed Vital Signs Vital Sign Reading Time Taken Comments Blood Pressure 138/83 08/20/2023 4:10 PM CDT Pulse 75 08/20/2023 4:10 PM CDT Temperature 36.6 C (97.8 F) 08/20/2023 4:10 PM CDT Respiratory Rate 16 08/20/2023 4:10 PM CDT Oxygen Saturation 98% 08/20/2023 4:10 PM CDT Inhaled Oxygen Concentration - - Weight 113.9 kg (251 lb 1.7 oz) 024 12:00 PM CDT Height 179.1 cm (5' 10.5) 08/20/2023 1 2:00 PM CDT Body Mass Index 35.52 08/20/2023 12:00 PM CDT Plan of Treatment Health Maintenance Due Date Last Done Comments Colorectal Cancer Screening Colonoscopy (10 Years) 1963 Annual Physical 1966 Hepatitis C 1981 Pneumococcal Vaccine: 50+ Years (1 of 1 - PCV) 2013 Zoster Vaccines (1 of 2) 2013 COVID-19 Vaccine (5 - season) 2025 12/01/2021, 03/27/2021, 07/11/2020, Additional history exists DTaP, Tdap and Td Vaccines (2 - Td or Tdap) 12/02/2031 12/01/2021 RSV Immunization or 60+ Years (1 - 1-dose 75+ series) 2038 Meningococcal B Vaccine Aged Out No l onger eligible based on patient's age to complete this topic Meningococcal Vaccine Aged Out No isidro richard eligible based on patient's age to complete this topic RSV Immunizations Under 20 Months Aged Out No longer eligible based on patient's age to complete this topic Insurance [address], [place] [address] [facility] Care Teams Brick Handler Relationship Specialty Start Date End Date Merrill Kilpatrick MD [address] [facility] [address] [place] [id number] PCP - General FAMILY PRACTICE 08/13/23
--- OUTSIDE RECORDS SUMMARY | 2025-02-02 00:16 | XMS_ITS | Clinical Summary ---
Author Organization [facility] [address] [facility] [address] [facility] [address] [place] [address] Care Team Providers Care Nutrition Professor Name Role Phone Yoko Davis DO Primary Care Provider [phone]- [phone] Allergies Active Allergy Reactions Criticality Noted Date Comments Penicillins Medications lisinopril (PRINIVIL,ZESTR IL) 2.5 mg tablet take 1 tablet by oral route every day [address] (NexIUM) 20 mg capsule take 1 capsule by oral route every day 0 0 6 Active loratadine (CLARITIN) 10 mg tablet Take 10 mg by mouth daily Active flaxseed oil oil Active elderberry fruit-honey 0.7-3 gram/7.5 mL liquid Take by mouth Active albuterol HFA (PROVENTIL HFA,VENTOLIN HFA,PROAIR HFA) 90 mcg/actuation inhaler Inhale 2 puffs every 6 (six) hours as needed for wheezing Active cyanocobalamin (Vitamin B-12) 1,000 mcg tabletIndicatio ns:Prevention of Vitamin B12 Deficiency Take 1,000 mcg by mouth daily Active fluticasone propionate (FLONASE) 50 mcg/actuation nasal spray Administer 1 spray into each nostril daily Active [id number] -Lmfolate-algal 27 mg iron-1.13 mg-581.92 mg capsule Take by mouth Active Active Problems Problem Noted Date Diagnosed Date Other chest pain 06/05/2020 Abnormal EKG 06/05/2020 CKD stage 3 due to type 2 diabetes mellitus 05/2020 Surgical History Surgery Date Site/Laterality Comments KNEE SURGERY Right Medical History Medical History Date Comments Asthma Asthma; Comments : [facility] 01/18/2016 - Hx Other Medical Back Pain; Comm ents: [facility] 01/18/2016 - Hx Other Medical Right knee 07/22 14; Comments: [facility] 01/18/2016 - Overweight Sinusitis Pneumonia Diabetes mellitus Family History Medical History Relation Name Comments No Known Problems Daughter 1 No Known Problems Daughter 2 No Known Problems Daughter 3 Alcohol abuse Father Pulmonary Father Diabetes type II Other 1 Family hist ory of Diabetes mellitus type 2; Alcohol abuse Other 2 Family history of Alcoholism; Cancer Other 3 Family history of Cancer, unknown; Kidney disease Other 4 Family histor y of kidney problems; Relation Name Status Comments Brother 1 Alive Brother 2 Alive Brother 3 Alive Brother 4 Alive Brother 5 Alive Brother 6 Alive Brother 7 Alive Daughter 1 Alive Daughter 2 Alive Daughter 3 Alive Father (Age 68) Mother Alive Other 1 Other 2 Other 3 Other 4 Sister 1 Alive Sister 2 Alive Sister 3 Alive Sister 4 Alive Social History Tobacco Use Types Packs/Day Years Used Date Smoking Tobacco: Never Smokeless Tobacco: Never Alcohol Use Standard Drinks/Week Comments Not Currently 0 (1 standard drink = 0.6 oz pur e alcohol) Sex and Gender Information Value Date Recorded Sex Assigned at Not on file Legal Sex Male 4:13 AM BUDGET SPECIALIST Gender Identity Not on file Sexual Orientation Not on file Obstetrics History Last Filed Vital Signs Vital Sign Reading Time Taken Comments Blood Pressure 110/70 05/28/2021 2:35 PM BUDGET SPECIALIST Pulse 100 05/28/2021 2:35 PM BUDGET SPECIALIST Temperature - - Respiratory Rate - - Oxygen Saturation 94% 05/28/2021 2:35 PM BUDGET SPECIALIST Inhaled Oxygen Concentration - - Weight 120.2 kg (265 lb) 05/28/2021 2:35 PM BUDGET SPECIALIST Height 177.8 cm (5' 10) 05/28/2021 2:35 PM BUDGET SPECIALIST Body Mass Index 38.02 05/28/2021 2:35 PM BUDGET SPECIALIST Plan of Treatment Not on file Insurance [facility] [place] [address] Care Teams Nutrition Professor Relationship Specialty Start Date End Date Yoko Davis DO PCP - General Family Medicine 05/31/20
[2025-02-02 11:32] VITALS: BP 124/71; PULSE 77; RESP 18; TEMP 36.8; O2SAT 98
--- NOTE | 2025-02-02 12:29 | WPDANESEPPF ---
Anes - Initial Pre Proc Eval Procedure: Operation Date: 02/02/25 13:00 Proposed Procedures p Screening Colonoscopy - Abiodun Corral MD Date/Time: 02/02/25 12:29 Surgeon: Abiodun Corral MD Pre Op Diagnosis: Screening Patient Data Age: 59 Gender: M Height: 1.78 m Weight: 91.8 kg Last Vital Signs Temp 36.8 C 02/02/25 11:32 Pulse 77 02/02/25 11:32 Resp 18 02/02/25 11:32 BP 124/71 02/02/25 11:32 Pulse Ox 98 02/02/25 11:32 O2 Del Method Room Air 02/02/25 11:32 Allergies Allergy/AdvReac Type Severity Reaction Status Date / Time cefuroxime Allergy Unknown Nausea Verified 02/02/25 11:28 clarithromycin Allergy Unknown itching Verified 02/02/25 11:28 loratadine Allergy Unknown fast heart Verified 02/02/25 11:28 rate/palpitations Penicillins Allergy Unknown Unknown Verified 02/02/25 11:28 pseudoephedrine (Claritin-D Allergy Unknown fast heart Verified 02/02/25 11:28 12 Hour) rate/palpitations Home Medications ?Medication ?Instructions ?Recorded ?Confirmed ?Type esomeprazole magnesium 40 mg 40 mg PO DAILY 04/13/19 02/02/25 History capsule,delayed release (Nexium) fluticasone propionate 50 2 spray intranasal DAILY 04/13/19 02/02/25 History mcg/actuation nasal spray,suspension (Flonase Allergy Relief) albuterol sulfate 90 mcg/actuation 2 puff inhalation Q4-6H PRN 02/24/23 01/20/25 Rx aerosol inhaler (ProAir HFA) shortness of breath or wheezing #8.5 grams loratadine 10 mg tablet (Claritin) 10 mg PO DAILY 03/04/23 02/02/25 History metformin 500 mg tablet,extended 1,000 mg (2 x 500 mg) PO BID #360 02/12/24 02/02/25 Rx release 24 hr tabs pravastatin 10 mg tablet See Rx Instructions .Route 08/16/24 02/02/25 Rx .COMPLEX #90 tabs lisinopril 2.5 mg tablet See Rx Instructions .Route 10/11/24 02/02/25 Rx .COMPLEX #90 tabs hydrochlorothiazide 12.5 mg tablet See Rx Instructions .Route 12/28/24 02/02/25 Rx .COMPLEX #90 tabs methocarbamol 750 mg tablet 750 mg PO TID PRN muscle pain #30 01/25/25 02/02/25 Rx tabs Laboratory Tests 02/02/25 11:45 POC Capillary Glucose 106 H mg/dl (65-105) Patient hx anesthesia problems: none Family hx anesthesia problems: none Results Review: All pre-operative results and documents have been reviewed as part of the pre-operative evaluation. [facility] Past Medical History Medical History (Updated 02/02/25 @ 12:29 by Michael Sandhu MD) Acute kidney injury superimposed on chronic kidney disease Normal colonoscopy (~11/16/13) Mild intermittent asthma Pure hypercholesterolemia, unspecified Type 2 diabetes mellitus with chronic kidney disease Surgical History Surgical History H/O prostate biopsy No Cancer Hx of appendectomy History of arthroscopy of knee (~07/22/13) History of tonsillectomy History of adenoidectomy Family History Family History Father Diabetes mellitus Mother Diabetes mellitus Sibling Diabetes mellitus Carcinoma of colon Social History Social History Smoking status: Never smoker Alcohol intake: former Substance use: never Substance use type: does not use Do You Feel Safe in your Home?: Yes Lack of Transportation: No Lack of Food: Never True Current Housing: I Have Housing Concerned About Future Housing: No Difficulty Paying Gas/Electric Bills: No Difficulty Paying for Meds: No Currently Unemployed: No Education: Master's Degree or Higher Difficulty w/ Childcare or Family Care: No Living arrangements: with family Gender identity (if verbalized by the patient): Male Spiritual care concerns: No Anes - Eval Final PreProcedure Day of Procedure 02/02/25 12:29 Patient weight: overweight Heart: regular rate and rhythm Lungs: clear to auscultation Airway: Mallampati scale class II Neurological: alert and oriented Last oral intake: >/= 8 hours ASA classification: III Emergent: no Anesthetic plan: proceed Anesthesia type and monitoring: general GIVS and standard monitoring Results Review: All pre-operative results and documents have been reviewed as part of the pre-operative evaluation. Informed Consent: The patient's anesthetic plan and its attendant risks and benefits were discussed with the patient/family/POA. Questions were solicited and answers provided to the satisfaction of the patient/family/POA.
--- NOTE | 2025-02-02 12:36 | PM.HPGS ---
History of Present Illness History of Present Illness Consent: Risks, benefits, and alternatives have been discussed and questions answered. Patient agrees to proceed with procedure. Chief complaint: Screening Narrative: Jesus Hanson is a 59 year old male here for screening colonoscopy, last one 10 years ago Review of Systems Review of Systems: All systems reviewed & are unremarkable except as noted in HPI and below PMFSH Past Medical History Medical History (Updated 02/02/25 @ 12:50 by Abiodun Corral MD) Colon cancer screening Acute kidney injury superimposed on chronic kidney disease Normal colonoscopy (~11/16/13) Mild intermittent asthma Pure hypercholesterolemia, unspecified Type 2 diabetes mellitus with chronic kidney disease Surgical History Surgical History H/O prostate biopsy No Cancer Hx of appendectomy History of arthroscopy of knee (~07/22/13) History of tonsillectomy History of adenoidectomy Family History Family History Father Diabetes mellitus Mother Diabetes mellitus Sibling Diabetes mellitus Carcinoma of colon Social History Social History Smoking status: Never smoker Alcohol intake: former Substance use: never Substance use type: does not use Do You Feel Safe in your Home?: Yes Lack of Transportation: No Lack of Food: Never True Current Housing: I Have Housing Concerned About Future Housing: No Difficulty Paying Gas/Electric Bills: No Difficulty Paying for Meds: No Currently Unemployed: No Education: Master's Degree or Higher Difficulty w/ Childcare or Family Care: No Living arrangements: with family Gender identity (if verbalized by the patient): Male Spiritual care concerns: No Meds Home Medications and Allergies Home Medications ?Medication ?Instructions ?Recorded ?Confirmed ?Type esomeprazole magnesium 40 mg 40 mg PO DAILY 04/13/19 02/02/25 History capsule,delayed release (Nexium) fluticasone propionate 50 2 spray intranasal DAILY 04/13/19 02/02/25 History mcg/actuation nasal spray,suspension (Flonase Allergy Relief) albuterol sulfate 90 mcg/actuation 2 puff inhalation Q4-6H PRN 02/24/23 01/20/25 Rx aerosol inhaler (ProAir HFA) shortness of breath or wheezing #8.5 grams loratadine 10 mg tablet (Claritin) 10 mg PO DAILY 03/04/23 02/02/25 History metformin 500 mg tablet,extended 1,000 mg (2 x 500 mg) PO BID #360 02/12/24 02/02/25 Rx release 24 hr tabs pravastatin 10 mg tablet See Rx Instructions .Route 08/16/24 02/02/25 Rx .COMPLEX #90 tabs lisinopril 2.5 mg tablet See Rx Instructions .Route 10/11/24 02/02/25 Rx .COMPLEX #90 tabs hydrochlorothiazide 12.5 mg tablet See Rx Instructions .Route 12/28/24 02/02/25 Rx .COMPLEX #90 tabs methocarbamol 750 mg tablet 750 mg PO TID PRN muscle pain #30 01/25/25 02/02/25 Rx tabs Allergies Allergy/AdvReac Type Severity Reaction Status Date / Time cefuroxime Allergy Unknown Nausea Verified 02/02/25 11:28 clarithromycin Allergy Unknown itching Verified 02/02/25 11:28 loratadine Allergy Unknown fast heart Verified 02/02/25 11:28 rate/palpitations Penicillins Allergy Unknown Unknown Verified 02/02/25 11:28 pseudoephedrine (Claritin-D Allergy Unknown fast heart Verified 02/02/25 11:28 12 Hour) rate/palpitations Vital Signs Vital Signs - 24 hr 02/02/25 11:32 Temperature 98.2 F Pulse Rate 77 Respiratory Rate 18 Blood Pressure 124/71 Pulse Oximetry 98 Oxygen Delivery Room Air Exam Const: General: comfortable and no acute distress HENMT: Face/Nose/Sinus: Normal nares present Eyes: General: appearance normal, both eyes and all related structures Neck: Neck: no JVD Resp: Auscultation: clear to auscultation bilaterally Cardio: Rate: regular rate Rhythm: regular rhythm GI: Inspection: non-distended GI Palp: Yes Soft to palpation Skin: General skin exam: normal color Extrem: General: normal to inspection Psych: Mental Status: mental status grossly normal Assessment and Plan Assessment and plan (1) Colon cancer screening: Code(s): Z12.11 - Encounter for screening for malignant neoplasm of colon Status: Acute Assessment and Plan: colonoscopy
--- NOTE | 2025-02-02 12:51 | SUR.OPER ---
made aware that the ascending colon polyp removed was not retrieved.
[2025-02-02 12:53] VITALS: BP 106/66; PULSE 77; RESP 18; O2SAT 95
[2025-02-02 13:02] VITALS: BP 103/66; PULSE 72; RESP 18; O2SAT 99
[2025-02-02 13:13] VITALS: BP 102/68; PULSE 67; RESP 18; O2SAT 99
== END 2025-02-02 13:28 | disposition home or self-care (01) ==
PROVIDERS: PCP Family Medicine; Referring Provider Nurse Practitioner Family; Visit Provider Internal Medicine Gastroenterology
PROC: 0DJD8ZZ Inspection of Lower Intestinal Tract, Via Natural or Artificial Opening Endoscopic (ICD-10-PCS; CPT 45378; principal; 2025-02-02 13:00)
DX: Z12.11 Encounter for screening for malignant neoplasm of colon (principal); K63.5 Polyp of colon; E11.22 Type 2 diabetes mellitus with diabetic chronic kidney disease; N18.9 Chronic kidney disease, unspecified; J45.909 Unspecified asthma, uncomplicated; E78.00 Pure hypercholesterolemia, unspecified; Z79.51 Long term (current) use of inhaled steroids; Z79.84 Long term (current) use of oral hypoglycemic drugs; Z98.890 Other specified postprocedural states; Z80.0 Family history of malignant neoplasm of digestive organs
CPT/HCPCS: 45385; 82948; J2003; J2704